=== PATIENT | female | born 1990 | race Caucasian/White ===

== ENCOUNTER 2016-12-01 18:30 | Emergency (ER) | payer OTHER ==
[~2016-12-01] VITALS: Ht 170.1 cm; Wt 89.4 kg
[~2016-12-01 18:30] MED LIST: ANAPROX DS550 MG PO; ATARAX25 MG PO; BACTRIM DS 8001 TA1 PO; CLARITIN10 MG PO; COLACE100 MG PO; FLAGYL 500 MG500 MG PO; FLEXERIL10 MG PO; FLEXERIL5 MG PO; HYDROCODONE BIT1 T11 PO; IBU800 MG PO; IBUPROFEN600 MG PO; IRON325 M1 PO; KENALOG0.025% TP; LEVAQUIN750 M1 PO; MOTRIN600 MG; MOTRIN800 MG PO; NKHM; NKHM PO; PERCOCET 325 MG1 TA2 PO; PERCOCET 325 MG1 TA5 PO; PERCOCET 325 MG1 TA7; PRENATAL1 TA1; TOBRADEX 0.1%-0.5 ML OPH; TRAMADOL HCL50 MG; TRAMADOL HCL50 MG PO; ZITHROMAX Z PA250 MG PO
== END 2016-12-01 19:54 | disposition home or self-care (01) ==
LOC: ED 18:30
DX: S93.401A Sprain of unspecified ligament of right ankle, initial encounter (principal); F17.200 Nicotine dependence, unspecified, uncomplicated; Z90.49 Acquired absence of other specified parts of digestive tract; Z88.0 Allergy status to penicillin; Z91.030 Bee allergy status; X50.1XXA Overexertion from prolonged static or awkward postures, initial encounter; Y93.89 Activity, other specified; Y92.9 Unspecified place or not applicable; Y99.9 Unspecified external cause status

== ENCOUNTER 2022-03-21 20:30 | Emergency (ER) | payer MEDICAID ==
[~2022-03-21] VITALS: Ht 170.1 cm; Wt 94.8 kg
== END 2022-03-22 01:25 | disposition home or self-care (01) ==
LOC: ED 20:30
DX: R60.0 Localized edema (principal); L72.9 Follicular cyst of the skin and subcutaneous tissue, unspecified; F17.200 Nicotine dependence, unspecified, uncomplicated; Z88.0 Allergy status to penicillin; Z91.030 Bee allergy status; Z90.49 Acquired absence of other specified parts of digestive tract

== ENCOUNTER 2022-11-03 12:00 | Emergency (ER) | payer OTHER ==
[~2022-11-03] VITALS: Ht 170.1 cm; Wt 86.2 kg
[2022-11-03] MEDS ORDERED: CYMBALTA30 MG PO (13:32)
== END 2022-11-03 13:52 | disposition home or self-care (01) ==
LOC: ED 12:00
DX: S09.90XA Unspecified injury of head, initial encounter (principal); F32.A Depression, unspecified; Z91.030 Bee allergy status; Z88.0 Allergy status to penicillin; Z90.49 Acquired absence of other specified parts of digestive tract; Z98.51 Tubal ligation status; W51.XXXA Accidental striking against or bumped into by another person, initial encounter; Y93.89 Activity, other specified; Y92.89 Other specified places as the place of occurrence of the external cause; Y99.8 Other external cause status

== ENCOUNTER 2023-02-12 18:33 | Emergency (ER) | payer OTHER ==
[~2023-02-12] VITALS: Ht 172.7 cm; Wt 81.6 kg
[~2023-02-12 18:33] MED LIST changes: +CYMBALTA30 MG PO
== END 2023-02-12 20:00 | disposition left against medical advice (07) ==
LOC: ED 18:33
DX: M25.512 Pain in left shoulder (principal); M79.602 Pain in left arm; R42 Dizziness and giddiness; Z53.21 Procedure and treatment not carried out due to patient leaving prior to being seen by health care provider

== ENCOUNTER 2023-07-10 09:05 | Emergency (ER) | payer SELFPAY ==
[~2023-07-10] VITALS: Ht 172.7 cm; Wt 90.7 kg
[2023-07-10 09:35] LABS: BASO # 0.1 10*3/uL (0.0-0.1); BASO % 0.4 % (0.0-1.0); EOS # 0.1 10*3/uL (0.0-0.4); EOS % 0.9 % (1.0-4.0); HEMATOCRIT 42.1 % (37.0-47.0); LYMPH # 4.6 10*3/uL (1.3-4.4); MEAN CELL VOLUME 90.7 fl (81.0-99.0); MEAN PLATELET VOLUME 9.9 fl (9.6-12.3); MONO % 6.5 % (3.0-9.0); NEUT # 9.9 10*3/uL (2.3-7.9); NEUT % 62.9 % (47.0-73.0); PLATELET COUNT AUTOMATED 324 10*3/uL (130-400); RED BLOOD COUNT 4.64 10*6/uL (4.10-5.10); RED CELL DISTRI WIDTH 13.2 % (0-14.5); WHITE BLOOD COUNT 15.7 10*3/uL (4.8-10.8)
[2023-07-10 09:48] LABS: ACT PARTIAL THROMBO TIME 27.3 SECONDS (20.0-32.1)
[2023-07-10 10:07] LABS: ALKALINE PHOSPHATASE 64 U/L (46-116); BUN 6 mg/dl (9-23); CHLORIDE 106 mmol/L (98-107); LIPASE 25 U/L (12-53); POTASSIUM 3.5 mmol/L (3.4-5.1); SGPT/ALT 8 U/L (5-49); TOTAL PROTEIN 7.4 gm/dL (6.0-8.0)
[2023-07-10 10:09] LABS: BETA-HCG, QUANT < 3.0 mIU/mL (3-10); ETHYL ALCOHOL < 3.0 mg/dl (<3)
[2023-07-10 10:41] LABS: BILIRUBIN Negative (Negative); BLOOD 2+ (Negative); CLARITY Cloudy (Clear); COLOR Yellow (Yellow); GLUCOSE Negative (Negative); KETONE Trace (Negative); LEUKO ESTERASE 2+ (Negative); NITRITE Negative (Negative); PH 5.5 (4.5-8.0); SPECIFIC GRAVITY 1.025 (1.001-1.030); UROBILINOGEN 0.2 E.U./dl (0.0-1.0)
[2023-07-10 10:47] LABS: URINE AMPHETAMINES Negative (1000ng/ml); URINE BARBITURATES Negative (200ng/ml); URINE BENZODIAZEPINES Negative (200ng/ml); URINE CANNABINOIDS (THC) Positive (50ng/ml); URINE COCAINE Negative (300ng/ml); URINE METHADONE Negative (300ng/ml); URINE OPIATES Negative (300ng/ml); URINE PHENCYCLIDINE Negative (25ng/ml)
[2023-07-10 10:58] LABS: EPITHELIAL CELLS 21-30
[2023-07-10 11:01] LABS: BACTERIA 2+; MUCOUS 1+; WBC 31-40 wbc/hpf (0-5)
[2023-07-10] MEDS ORDERED: CIPRO500 MG PO (12:14)
[2023-07-10] MEDS ORDERED: METRONIDAZOLE500 M1 PO (12:14)
== END 2023-07-10 12:39 | disposition home or self-care (01) ==
LOC: ED 09:05
PROVIDERS: Internal Medicine
DX: N39.0 Urinary tract infection, site not specified (principal); Z20.2 Contact with and (suspected) exposure to infections with a predominantly sexual mode of transmission; A59.9 Trichomoniasis, unspecified; R07.89 Other chest pain; R20.0 Anesthesia of skin; F32.A Depression, unspecified; R10.2 Pelvic and perineal pain; Z91.030 Bee allergy status; Z88.0 Allergy status to penicillin; Z90.49 Acquired absence of other specified parts of digestive tract; Z98.51 Tubal ligation status; Z87.891 Personal history of nicotine dependence; Z79.899 Other long term (current) drug therapy